=== PATIENT | male | born 1970 | race Caucasian/White ===

== ENCOUNTER 2024-11-02 16:29 | Inpatient (IN) | payer OTHER ==
[~2024-11-02] VITALS: Ht 172.7 cm; Wt 86.2 kg
[2024-11-02] MEDS: SODIUM CHLORIDE 0.9% (SEPSIS BOLUS) IV ONE (17:11)
[2024-11-02] MEDS: PIPERACILLIN/TAZO 3.375G/50ML 50 ML IV ONE (17:21)
[2024-11-02 17:32] LABS: MEAN CORPUSCULAR HEMOGLOBIN 28.1 pg (28.0-32.0); MEAN CORPUSCULAR HGB CONC 29.4 g/dL (31.0-37.0); MEAN CORPUSCULAR VOLUME 95.7 fL (80.0-94.0); MEAN PLATELET VOLUME 9.3 fl (7.4-10.4); PLATELET 385 x1000/uL (130-400); RED BLOOD CELL COUNT 2.33 mill/uL (4.7-6.1); RED CELL DISTRIBUTION WIDTH 17.9 % (11.6-14.6); WHITE BLOOD COUNT 17.6 x1000/uL (4.5-11.0)
[2024-11-02 17:34] LABS: DIFFERENTIAL COMMENT 1
[2024-11-02 17:35] LABS: HEMOGLOBIN. 6.6 g/dL (14.0-18.0)
[2024-11-02 17:36] LABS: HEMATOCRIT. 22.3 % (42.0-52.0)
[2024-11-02 17:37] LABS: CHLORIDE 126 mEq/L (98-107)
[2024-11-02 17:38] LABS: CALCIUM 8.3 mg/dL (8.7-10.4); CARBON DIOXIDE 22 mEq/L (21-32)
[2024-11-02 17:39] LABS: INR 1.1; PROTHROMBIN TIME 11.8 sec (9.6-11.0)
[2024-11-02 17:43] LABS: CREATININE 3.5 mg/dL (0.6-1.3); GLUCOSE 201 mg/dL (70-105)
[2024-11-02 17:44] LABS: LACTIC ACID 2.2 mmol/L (0.4-2.0); TROPONIN I HIGH SENSITIVITY 27 ng/L (3.0-53)
[2024-11-02 17:45] LABS: ALANINE AMINOTRANSFERASE 54 IU/L (10-49); ALBUMIN 3.2 g/dL (3.2-4.8); ASPARTATE AMINOTRANSFERASE 36 IU/L (<34); BILIRUBIN DIRECT 0.2 mg/dL (<=3.0); BILIRUBIN TOTAL 0.5 mg/dL (0.1-1.0); PROTEIN TOTAL 7.2 g/dL (6.0-8.3)
[2024-11-02 17:48] LABS: SODIUM 161 mEq/L (136-145); UREA NITROGEN BLOOD 142 mg/dL (9-23)
[2024-11-02] MEDS: VANCOMYCIN 1G PREMIX 200 ML IV ONE (18:18)
[2024-11-02 20:08] LABS: ANISOCYTOSIS 1+; NUCLEATED RED BLOOD CELLS 2 /100 WBC; PLATELET ESTIMATE NORMAL
[2024-11-02] MEDS ORDERED: CLONIDINE 0.1MG TABLET PO PRN (21:00)
[2024-11-02] MEDS ORDERED: ACETAMINOPHEN 325MG TABLET PO PRN (21:00)
[2024-11-02] MEDS ORDERED: MAGNESIUM/ALUMINUM HYDROXIDE/SIMETHICONE 30ML UDC PO PRN (21:00)
[2024-11-02] MEDS ORDERED: MORPHINE SULFATE 2 MG/ML INJ (NOT FOR IM USE) IV PRN (21:00)
[2024-11-02] MEDS ORDERED: NA PHOS,M-B/NA PHOS,DI-BA ENEMA 118ML PR PRN (21:00)
[2024-11-02] MEDS ORDERED: ONDANSETRON HCL 4MG/2ML INJ IV PRN (21:00)
[2024-11-02] MEDS ORDERED: ACETAMINOPHEN 650MG SUPP PR PRN ×2 (21:00)
[2024-11-02] MEDS ORDERED: IPRATROPIUM/ALBUTEROL 0.5-3(2.5)MG/3ML NEB HHN PRN (21:00)
[2024-11-02] MEDS ORDERED: HYDROCODONE/ACETAMINOPHEN 5/325MG TABLET PO PRN (21:00)
[2024-11-02] MEDS ORDERED: GUAIFENESIN 200MG/10ML SUGAR FREE UDC PO PRN (21:00)
[2024-11-02] MEDS ORDERED: NALOXONE HCL 0.4MG/ML VIAL IV PRN (21:30)
[2024-11-02] MEDS: DEXT 5%/0.45% NACL 1000ML 1,000 ML IV SCH (21:45)
[2024-11-02 22:02] LABS: TROPONIN I HIGH SENSITIVITY 20 ng/L (3.0-53)
[2024-11-02 22:10] LABS: SODIUM 162 mEq/L (136-145)
[2024-11-02 22:38] LABS: IRON 33 ug/dL (65-175)
[2024-11-02 22:49] LABS: VITAMIN B12 SERUM 717 pg/mL (211-911)
[2024-11-02 23:21] LABS: TOTAL IRON BINDING CAPACITY > 670 ug/dl (250-425)
[2024-11-02] MEDS: PANTOPRAZOLE SODIUM 40 MG/VIAL IV NR (23:29)
[2024-11-03 01:20] LABS: POTASSIUM 4.5 mEq/L (3.5-5.1)
[2024-11-03 01:21] LABS: CALCIUM 7.9 mg/dL (8.7-10.4)
[2024-11-03 01:26] LABS: CREATININE 2.9 mg/dL (0.6-1.3)
[2024-11-03] MEDS: NOREPINEPHRINE 8MG/250ML PMX 250 ML IV PRN (01:37)
[2024-11-03 01:53] LABS: CLARITY URINE CLEAR (CLEAR); COLOR URINE YELLOW (YELLOW); GLUCOSE URINE NEGATIVE (NEGATIVE); KETONES URINE NEGATIVE (NEGATIVE); LEUKOCYTE ESTERASE URINE 2+ (NEGATIVE); NITRITE URINE NEGATIVE (NEGATIVE); OCCULT BLOOD URINE NEGATIVE (NEGATIVE); PH URINE 5.5 (4.5-8.0); PROTEIN URINE TRACE (NEGATIVE); SPECIFIC GRAVITY URINE 1.015 (1.005-1.030)
[2024-11-03 03:05] LABS: BACTERIA URINE 2+; SQUAMOUS EPITHELIAL CELL URINE NONE SEEN /lpf (RARE/1+); WBC URINE 50-100 /hpf (0-2)
[2024-11-03] MEDS: PIPERACILLIN/TAZO 3.375G/50ML 50 ML IV SCH (03:30)
[2024-11-03 04:27] LABS: OSMOLALITY URINE 313 mOsm/kg (500-850)
[2024-11-03 04:28] LABS: SODIUM URINE RANDOM < 10 mEq/L
[2024-11-03 09:53] LABS: MEAN CORPUSCULAR HEMOGLOBIN 29.2 pg (28.0-32.0); MEAN CORPUSCULAR HGB CONC 31.8 g/dL (31.0-37.0); MEAN CORPUSCULAR VOLUME 91.7 fL (80.0-94.0); MEAN PLATELET VOLUME 9.6 fl (7.4-10.4); RED BLOOD CELL COUNT 2.83 mill/uL (4.7-6.1); RED CELL DISTRIBUTION WIDTH 16.9 % (11.6-14.6)
[2024-11-03 10:10] LABS: DIFFERENTIAL COMMENT 1; POTASSIUM 3.6 mEq/L (3.5-5.1)
[2024-11-03 10:11] LABS: HEMOGLOBIN. 8.3 g/dL (14.0-18.0)
[2024-11-03 10:38] LABS: BG BASE EXCESS -5.6 mmol/L (-2.0-3.0); BG CARBOXYHEMOGLOBIN 0.1 % (0.5-1.5); BG DEOXYHEMOGLOBIN 1.3 % (0.0-5.0); BG FRACTION INSPIRED OXYGEN 36; BG HCO3 ACT 16.8 mmol/L (21.0-28.0); BG METHEMOGLOBIN 0.1 % (0.5-1.5); BG OXYGEN SATURATION 98.7 % (94.0-98.0); BG OXYHEMOGLOBIN 98.5 % (94.0-98.0); BG PH 7.482 (7.350-7.450); BG PO2 114.4 mmHg (83.0-108.0); BG SAMPLE SITE RIGHT RADIAL; BG TOTAL HEMOGLOBIN 8.7 g/dL (13.5-17.5); BG VENT MODE NASAL CANNULA
[2024-11-03 11:18] LABS: CALCIUM 5.5 mg/dL (8.7-10.4)
[2024-11-03] MEDS: DEXTROSE 5% WATER 1,000 ML IV SCH (11:18)
[2024-11-03] MEDS: PANTOPRAZOLE SODIUM 40 MG/VIAL IV SCH (11:24)
[2024-11-03 13:55] LABS: NUCLEATED RED BLOOD CELLS 4 /100 WBC
[2024-11-03 13:56] LABS: ANISOCYTOSIS 1+; PLATELET ESTIMATE SLIGHTLY INCREASED
[2024-11-03 13:57] LABS: PLATELET 404 x1000/uL (130-400)
[2024-11-03] MEDS ORDERED: DEXTROSE 50% WATER 50ML SYRINGE IV PRN (16:00)
[2024-11-03] MEDS: VANCOMYCIN 1GM/200ML PMX (BAXTER) IV SCH (16:22)
[2024-11-03] MEDS ORDERED: SODIUM BICARBONATE 100MEQ in DEXTROSE 5% WATER 1000ML IV SCH (17:00)
[2024-11-03 17:06] LABS: POTASSIUM 4.8 mEq/L (3.5-5.1)
[2024-11-03 17:07] LABS: CALCIUM 7.4 mg/dL (8.7-10.4)
[2024-11-03 17:15] LABS: CREATININE 2.8 mg/dL (0.6-1.3)
[2024-11-03] MEDS: BLOOD SUGAR DIAGNOSTIC STRIP TEST SCH (17:38)
[2024-11-03] MEDS: INSULIN LISPRO 100 UNITS/ML SUBCUT SCH (17:42)
[2024-11-03] MEDS: SODIUM BICARBONATE 50 MEQ in DEXTROSE 5% WATER 950 ML IV NR (19:14)
[2024-11-03 19:30] LABS: HEMATOCRIT 27.9 % (42.0-52.0); HEMOGLOBIN 7.7 g/dL (14.0-18.0)
[2024-11-03 19:32] LABS: POTASSIUM 4.8 mEq/L (3.5-5.1)
[2024-11-03 19:33] LABS: CALCIUM 7.3 mg/dL (8.7-10.4)
[2024-11-03 19:38] LABS: CREATININE 2.7 mg/dL (0.6-1.3)
[2024-11-04] VITALS (57 sets, daily range): BP systolic 71–157; BP diastolic 60–116; PULSE 53–71; RESP 9–24; TEMP 35.7–37.5; O2SAT 97–100
[2024-11-04 00:51] LABS: POTASSIUM 4.1 mEq/L (3.5-5.1)
[2024-11-04 00:53] LABS: CALCIUM 7.5 mg/dL (8.7-10.4)
[2024-11-04 00:57] LABS: CREATININE 2.5 mg/dL (0.6-1.3)
[2024-11-04 01:09] LABS: HEMATOCRIT 22.3 % (42.0-52.0)
[2024-11-04 01:11] LABS: HEMOGLOBIN 6.9 g/dL (14.0-18.0)
[2024-11-04 09:53] LABS: BG BASE EXCESS -4.6 mmol/L (-2.0-3.0); BG CARBOXYHEMOGLOBIN 0.2 % (0.5-1.5); BG DEOXYHEMOGLOBIN 1.3 % (0.0-5.0); BG FRACTION INSPIRED OXYGEN 36; BG METHEMOGLOBIN 0.3 % (0.5-1.5); BG OXYGEN SATURATION 98.7 % (94.0-98.0); BG OXYHEMOGLOBIN 98.2 % (94.0-98.0); BG PCO2 28.9 mmHg (35.0-48.0); BG PH 7.435 (7.350-7.450); BG PO2 126.5 mmHg (83.0-108.0); BG SAMPLE SITE RIGHT RADIAL; BG TOTAL HEMOGLOBIN 8.2 g/dL (13.5-17.5); BG VENT MODE NASAL CANNULA
[2024-11-04] MEDS ORDERED: DEXTROSE 5% WATER 1,000 ML IV SCH (10:00)
[2024-11-04 13:43] LABS: CARBON DIOXIDE 20 mEq/L (21-32); CHLORIDE 131 mEq/L (98-107)
[2024-11-04 13:44] LABS: CALCIUM 7.4 mg/dL (8.7-10.4)
[2024-11-04 13:48] LABS: CREATININE 2.1 mg/dL (0.6-1.3); GLUCOSE 144 mg/dL (70-105)
[2024-11-04 13:49] LABS: UREA NITROGEN BLOOD 69 mg/dL (9-23)
[2024-11-04 13:51] LABS: PHOSPHORUS 4.1 mg/dL (2.5-4.9)
[2024-11-04 14:09] LABS: SODIUM 165 mEq/L (136-145)
[2024-11-04 14:17] LABS: HEMATOCRIT 26.6 % (42.0-52.0); HEMOGLOBIN 8.1 g/dL (14.0-18.0)
[2024-11-04 14:19] LABS: BASOPHILS % 0.3 % (0.0-2.0); EOSINOPHILS % 2.4 % (0.0-5.0); HEMATOCRIT. 25.4 % (42.0-52.0); HEMOGLOBIN. 7.8 g/dL (14.0-18.0); LYMPHOCYTES % 8.3 % (20.0-50.0); MEAN CORPUSCULAR HEMOGLOBIN 29.2 pg (28.0-32.0); MEAN CORPUSCULAR HGB CONC 30.6 g/dL (31.0-37.0); MEAN CORPUSCULAR VOLUME 95.4 fL (80.0-94.0); MEAN PLATELET VOLUME 9.6 fl (7.4-10.4); MONOCYTES % 5.2 % (2.0-8.0); NEUTROPHILS % 83.8 % (40.0-76.0); PLATELET 301 x1000/uL (130-400); RED BLOOD CELL COUNT 2.66 mill/uL (4.7-6.1); RED CELL DISTRIBUTION WIDTH 17.1 % (11.6-14.6)
[2024-11-04] MEDS: DEXTROSE 5% WATER 1,000 ML IV SCH (17:44)
[2024-11-04] MEDS ORDERED: ASPIRIN 81MG EC TABLET PO SCH (20:00)
[2024-11-04] MEDS ORDERED: CLOPIDOGREL 75MG TABLET PO SCH (20:00)
[2024-11-04] MEDS: ATORVASTATIN CALCIUM 40MG TABLET PO SCH (20:35)
[2024-11-04] MEDS: DOCUSATE SODIUM 100MG CAPSULE PO PRN (20:36)
[2024-11-04 21:07] LABS: HEMATOCRIT 29.6 % (42.0-52.0); HEMOGLOBIN 9.2 g/dL (14.0-18.0)
[2024-11-04 21:22] LABS: AMMONIA 20 uMol/L (<32)
[2024-11-05] VITALS (88 sets, daily range): BP systolic 74–139; BP diastolic 55–101; PULSE 47–84; RESP 8–25; TEMP 35.6–37.2; O2SAT 93–100
[2024-11-05] MEDS: DOPAMINE 400MG/250ML PREMIX 250 ML IV PRN (00:16)
[2024-11-05] MEDS: DIPHENHYDRAMINE 50MG/ML VIAL IV PRN (00:44)
[2024-11-05 05:21] LABS: CHLORIDE 131 mEq/L (98-107); POTASSIUM 4.3 mEq/L (3.5-5.1)
[2024-11-05 05:22] LABS: CALCIUM 7.5 mg/dL (8.7-10.4); CARBON DIOXIDE 21 mEq/L (21-32)
[2024-11-05 05:27] LABS: CREATININE 1.7 mg/dL (0.6-1.3); GLUCOSE 166 mg/dL (70-105)
[2024-11-05 05:28] LABS: LDL CHOLESTEROL 29 mg/dL (5-100); TRIGLYCERIDE 221 mg/dL (0-150); UREA NITROGEN BLOOD 56 mg/dL (9-23)
[2024-11-05 05:29] LABS: ALANINE AMINOTRANSFERASE 165 IU/L (10-49); ALBUMIN 2.5 g/dL (3.2-4.8); ASPARTATE AMINOTRANSFERASE 117 IU/L (<34); BILIRUBIN DIRECT 1.3 mg/dL (<=3.0); CHOLESTEROL 81 mg/dL (<200); CREATINE KINASE 352 IU/L (46-171); HDL CHOLESTEROL < 20 mg/dL (>55); LACTATE DEHYDROGENASE 620 IU/L (120-246); PROTEIN TOTAL 5.9 g/dL (6.0-8.3)
[2024-11-05 05:45] LABS: HEPATITIS B SURFACE ANTIGEN NEGATIVE (Negative)
[2024-11-05 05:56] LABS: HEMATOCRIT. 25.1 % (42.0-52.0); HEMOGLOBIN. 7.8 g/dL (14.0-18.0); MEAN CORPUSCULAR HEMOGLOBIN 29.3 pg (28.0-32.0); MEAN CORPUSCULAR HGB CONC 31.2 g/dL (31.0-37.0); MEAN PLATELET VOLUME 9.6 fl (7.4-10.4); PLATELET 269 x1000/uL (130-400); RED BLOOD CELL COUNT 2.67 mill/uL (4.7-6.1); RED CELL DISTRIBUTION WIDTH 16.6 % (11.6-14.6); WHITE BLOOD COUNT 11.7 x1000/uL (4.5-11.0)
[2024-11-05 06:06] LABS: HEPATITIS A AB IGM REACTIVE (Negative); HEPATITIS B CORE AB IGM NEGATIVE (Negative)
[2024-11-05 06:07] LABS: HEPATITIS C AB NON REACTIVE (Neg) (Negative); SODIUM 164 mEq/L (136-145)
[2024-11-05 07:18] LABS: DIFFERENTIAL COMMENT 1
[2024-11-05 12:37] LABS: HEMATOCRIT 28.1 % (42.0-52.0); HEMOGLOBIN 8.6 g/dL (14.0-18.0)
[2024-11-05] MEDS: VANCOMYCIN 1GM/200ML PMX (BAXTER) IV SCH (13:54)
[2024-11-05] MEDS: MIDODRINE HCL 5MG TABLET NG SCH (13:55)
[2024-11-05] MEDS: FERROUS SULFATE 325MG TABLET PO SCH (18:08)
[2024-11-05] MEDS: CEFAZOLIN 2GM/100ML 100 ML IV SCH (21:13)
[2024-11-05] MEDS ORDERED: CEFAZOLIN 2GM/100ML 100 ML IV SCH ×2 (22:00)
[2024-11-05 22:43] LABS: HEMATOCRIT 28.8 % (42.0-52.0); HEMOGLOBIN 8.8 g/dL (14.0-18.0)
[2024-11-06] VITALS (35 sets, daily range): BP systolic 99–161; BP diastolic 68–96; PULSE 54–86; RESP 10–32; TEMP 36–36.6; O2SAT 95–100
[2024-11-06 01:50] LABS: HEMATOCRIT 31.5 % (42.0-52.0); HEMOGLOBIN 9.8 g/dL (14.0-18.0)
[2024-11-06 05:42] LABS: BASOPHILS % 0.4 % (0.0-2.0); EOSINOPHILS % 4.1 % (0.0-5.0); HEMATOCRIT. 28.2 % (42.0-52.0); LYMPHOCYTES % 8.3 % (20.0-50.0); MEAN CORPUSCULAR HEMOGLOBIN 29.2 pg (28.0-32.0); MEAN CORPUSCULAR HGB CONC 31.9 g/dL (31.0-37.0); MEAN CORPUSCULAR VOLUME 91.5 fL (80.0-94.0); MEAN PLATELET VOLUME 9.2 fl (7.4-10.4); MONOCYTES % 3.9 % (2.0-8.0); NEUTROPHILS % 83.3 % (40.0-76.0); PLATELET 293 x1000/uL (130-400); RED BLOOD CELL COUNT 3.08 mill/uL (4.7-6.1); RED CELL DISTRIBUTION WIDTH 16.5 % (11.6-14.6); WHITE BLOOD COUNT 10.4 x1000/uL (4.5-11.0)
[2024-11-06 05:49] LABS: CHLORIDE 126 mEq/L (98-107); POTASSIUM 3.2 mEq/L (3.5-5.1)
[2024-11-06 05:52] LABS: CARBON DIOXIDE 20 mEq/L (21-32)
[2024-11-06 05:53] LABS: CALCIUM 7.7 mg/dL (8.7-10.4)
[2024-11-06 05:57] LABS: CREATININE 1.5 mg/dL (0.6-1.3); GLUCOSE 142 mg/dL (70-105)
[2024-11-06 05:58] LABS: UREA NITROGEN BLOOD 36 mg/dL (9-23)
[2024-11-06 05:59] LABS: ALANINE AMINOTRANSFERASE 117 IU/L (10-49); ALBUMIN 2.5 g/dL (3.2-4.8); ASPARTATE AMINOTRANSFERASE 58 IU/L (<34)
[2024-11-06 06:00] LABS: BILIRUBIN DIRECT 0.6 mg/dL (<=3.0); BILIRUBIN TOTAL 0.9 mg/dL (0.1-1.0); PHOSPHORUS 2.7 mg/dL (2.5-4.9); PROTEIN TOTAL 5.7 g/dL (6.0-8.3)
[2024-11-06] MEDS: CEFEPIME 2 GM/50 ML IV SCH (06:19)
[2024-11-06 06:57] LABS: SODIUM 159 mEq/L (136-145)
[2024-11-06] MEDS: POTASSIUM CHLORIDE 20MEQ/PACKET PO NR ×2 (11:14→18:00)
[2024-11-06] MEDS ORDERED: ATROPINE SULFATE 1MG/ML VIAL IV PRN (11:15)
[2024-11-06] MEDS: MIDODRINE HCL 5MG TABLET NG SCH (13:00)
[2024-11-06 17:57] LABS: ANISOCYTOSIS 1+; PLATELET ESTIMATE NORMAL
[2024-11-07] VITALS: BP 145/80; PULSE 70; RESP 16; TEMP 36.2; O2SAT 95
[2024-11-07 04:00] VITALS: BP 136/83; PULSE 69; RESP 17; TEMP 36.3; O2SAT 98
[2024-11-07 07:45] LABS: CALCIUM 7.6 mg/dL (8.7-10.4); CARBON DIOXIDE 21 mEq/L (21-32); CHLORIDE 126 mEq/L (98-107); POTASSIUM 3.7 mEq/L (3.5-5.1); SODIUM 155 mEq/L (136-145)
[2024-11-07 07:48] LABS: UREA NITROGEN BLOOD 29 mg/dL (9-23)
[2024-11-07 07:50] LABS: CREATININE 1.5 mg/dL (0.6-1.3); GLUCOSE 160 mg/dL (70-105)
[2024-11-07 07:52] LABS: ALANINE AMINOTRANSFERASE 84 IU/L (10-49); ALBUMIN 2.5 g/dL (3.2-4.8); ASPARTATE AMINOTRANSFERASE 56 IU/L (<34); BILIRUBIN DIRECT 0.4 mg/dL (<=3.0)
[2024-11-07 07:53] LABS: BILIRUBIN TOTAL 0.7 mg/dL (0.1-1.0); PHOSPHORUS 2.6 mg/dL (2.5-4.9)
[2024-11-07 08:00] VITALS: BP 157/92; PULSE 72; RESP 19; TEMP 36.5; O2SAT 97
[2024-11-07 08:14] LABS: BASOPHILS % 0.4 % (0.0-2.0); HEMATOCRIT. 29.5 % (42.0-52.0); HEMOGLOBIN. 9.6 g/dL (14.0-18.0); LYMPHOCYTES % 11.1 % (20.0-50.0); MEAN CORPUSCULAR HEMOGLOBIN 29.5 pg (28.0-32.0); MEAN CORPUSCULAR HGB CONC 32.5 g/dL (31.0-37.0); MEAN CORPUSCULAR VOLUME 90.8 fL (80.0-94.0); MEAN PLATELET VOLUME 9.2 fl (7.4-10.4); MONOCYTES % 5.1 % (2.0-8.0); NEUTROPHILS % 79.4 % (40.0-76.0); PLATELET 298 x1000/uL (130-400); RED BLOOD CELL COUNT 3.25 mill/uL (4.7-6.1); RED CELL DISTRIBUTION WIDTH 16.1 % (11.6-14.6); WHITE BLOOD COUNT 9.4 x1000/uL (4.5-11.0)
[2024-11-07 12:00] VITALS: BP 143/94; PULSE 74; RESP 19; TEMP 36.2; O2SAT 97
[2024-11-07] MEDS: POTASSIUM CHLORIDE 20MEQ/PACKET PO NR (13:38)
[2024-11-07 16:00] VITALS: BP 131/72; PULSE 75; RESP 19; TEMP 36.5; O2SAT 97
[2024-11-07] MEDS: DOCUSATE SODIUM SUGAR FREE 100MG/10ML UDC PEG PRN (18:14)
[2024-11-07 20:00] VITALS: BP 158/98; PULSE 76; RESP 18; TEMP 36.5; O2SAT 99
[2024-11-07] MEDS ORDERED: MIDODRINE HCL 5MG TABLET NG SCH (21:00)
[2024-11-07] MEDS: ATORVASTATIN CALCIUM 40MG TABLET PEG SCH (21:11)
[2024-11-08] VITALS: BP 138/86; PULSE 78; RESP 19; TEMP 36.4; O2SAT 98
[2024-11-08 04:00] VITALS: BP 146/86; PULSE 80; RESP 20; TEMP 36.5; O2SAT 98
[2024-11-08 06:52] LABS: CHLORIDE 122 mEq/L (98-107); POTASSIUM 3.7 mEq/L (3.5-5.1); SODIUM 151 mEq/L (136-145)
[2024-11-08 06:54] LABS: CALCIUM 7.6 mg/dL (8.7-10.4); CARBON DIOXIDE 20 mEq/L (21-32)
[2024-11-08 06:59] LABS: CREATININE 1.3 mg/dL (0.6-1.3); GLUCOSE 148 mg/dL (70-105); UREA NITROGEN BLOOD 20 mg/dL (9-23)
[2024-11-08 07:00] LABS: ALANINE AMINOTRANSFERASE 68 IU/L (10-49); ASPARTATE AMINOTRANSFERASE 45 IU/L (<34)
[2024-11-08 07:01] LABS: ALBUMIN 2.5 g/dL (3.2-4.8); BILIRUBIN DIRECT 0.3 mg/dL (<=3.0); BILIRUBIN TOTAL 0.7 mg/dL (0.1-1.0)
[2024-11-08 07:59] LABS: HEMATOCRIT. 30.2 % (42.0-52.0); HEMOGLOBIN. 9.7 g/dL (14.0-18.0); MEAN CORPUSCULAR HEMOGLOBIN 29.8 pg (28.0-32.0); MEAN PLATELET VOLUME 8.9 fl (7.4-10.4); PLATELET 272 x1000/uL (130-400); RED BLOOD CELL COUNT 3.24 mill/uL (4.7-6.1); RED CELL DISTRIBUTION WIDTH 16.7 % (11.6-14.6); WHITE BLOOD COUNT 9.4 x1000/uL (4.5-11.0)
[2024-11-08 08:00] VITALS: BP 134/99; PULSE 84; RESP 18; TEMP 37.8; O2SAT 100
[2024-11-08 09:04] LABS: DIFFERENTIAL COMMENT 1
[2024-11-08 12:00] VITALS: BP 152/96; PULSE 80; RESP 18; TEMP 35.9; O2SAT 99
[2024-11-08 14:06] LABS: ANISOCYTOSIS 1+; PLATELET ESTIMATE NORMAL
[2024-11-08 16:00] VITALS: BP 166/103; PULSE 84; RESP 18; TEMP 36.6; O2SAT 100
[2024-11-08] MEDS: DEXTROSE 5% WATER 1,000 ML IV SCH (16:50)
[2024-11-08 20:00] VITALS: BP 160/103; PULSE 84; RESP 19; TEMP 36.7; O2SAT 98
[2024-11-08] MEDS: ACETAMINOPHEN 325MG TABLET PO PRN (22:18)
[2024-11-08] MEDS: HYDRALAZINE 20MG/ML VIAL IV PRN (22:19)
[2024-11-09] VITALS: BP 140/90; PULSE 100; RESP 18; TEMP 36.1; O2SAT 99
[2024-11-09 04:00] VITALS: BP 112/75; PULSE 98; RESP 18; TEMP 36.6; O2SAT 98
[2024-11-09 07:10] LABS: CHLORIDE 116 mEq/L (98-107); POTASSIUM 3.6 mEq/L (3.5-5.1); SODIUM 143 mEq/L (136-145)
[2024-11-09 07:11] LABS: CALCIUM 7.8 mg/dL (8.7-10.4); CARBON DIOXIDE 19 mEq/L (21-32); HEMATOCRIT. 30.3 % (42.0-52.0); HEMOGLOBIN. 9.8 g/dL (14.0-18.0); MEAN CORPUSCULAR HEMOGLOBIN 29.9 pg (28.0-32.0); MEAN CORPUSCULAR HGB CONC 32.4 g/dL (31.0-37.0); MEAN CORPUSCULAR VOLUME 92.3 fL (80.0-94.0); MEAN PLATELET VOLUME 8.9 fl (7.4-10.4); PLATELET 279 x1000/uL (130-400); RED BLOOD CELL COUNT 3.29 mill/uL (4.7-6.1); RED CELL DISTRIBUTION WIDTH 16.3 % (11.6-14.6)
[2024-11-09 07:16] LABS: CREATININE 1.3 mg/dL (0.6-1.3); GLUCOSE 139 mg/dL (70-105); UREA NITROGEN BLOOD 18 mg/dL (9-23)
[2024-11-09 07:17] LABS: ALANINE AMINOTRANSFERASE 76 IU/L (10-49)
[2024-11-09 07:18] LABS: ALBUMIN 2.5 g/dL (3.2-4.8); ASPARTATE AMINOTRANSFERASE 60 IU/L (<34); BILIRUBIN DIRECT 0.3 mg/dL (<=3.0)
[2024-11-09 07:19] LABS: BILIRUBIN TOTAL 0.6 mg/dL (0.1-1.0); PREALBUMIN 15.5 mg/dl (10.0-40.0)
[2024-11-09 07:58] LABS: DIFFERENTIAL COMMENT 1
[2024-11-09 08:00] VITALS: BP 121/78; PULSE 97; RESP 16; TEMP 36.5; O2SAT 98
[2024-11-09] MEDS: POTASSIUM-SODIUM PHOSPHATE POWDER PACKET PO SCH (11:54)
[2024-11-09 12:00] VITALS: BP 148/92; PULSE 97; RESP 18; TEMP 36.5; O2SAT 99
[2024-11-09 16:00] VITALS: BP 148/85; PULSE 94; RESP 16; TEMP 36.6; O2SAT 100
[2024-11-09 19:50] LABS: ANISOCYTOSIS 1+; PLATELET ESTIMATE NORMAL
[2024-11-09 20:00] VITALS: BP 150/94; PULSE 89; RESP 19; TEMP 36.6; O2SAT 98
[2024-11-10 04:00] VITALS: BP 107/46; PULSE 82; RESP 19; TEMP 36.1; O2SAT 97
[2024-11-10] MEDS: PANTOPRAZOLE 40MG DR TABLET PO SCH (06:45)
[2024-11-10 06:50] LABS: HEMATOCRIT. 29.2 % (42.0-52.0); HEMOGLOBIN. 9.3 g/dL (14.0-18.0); MEAN CORPUSCULAR HGB CONC 31.8 g/dL (31.0-37.0); MEAN CORPUSCULAR VOLUME 91.2 fL (80.0-94.0); MEAN PLATELET VOLUME 8.8 fl (7.4-10.4); PLATELET 277 x1000/uL (130-400); RED CELL DISTRIBUTION WIDTH 16.6 % (11.6-14.6); WHITE BLOOD COUNT 11.4 x1000/uL (4.5-11.0)
[2024-11-10 07:02] LABS: CHLORIDE 113 mEq/L (98-107); POTASSIUM 3.7 mEq/L (3.5-5.1); SODIUM 142 mEq/L (136-145)
[2024-11-10 07:03] LABS: CARBON DIOXIDE 20 mEq/L (21-32)
[2024-11-10 07:08] LABS: CREATININE 1.3 mg/dL (0.6-1.3); GLUCOSE 123 mg/dL (70-105); UREA NITROGEN BLOOD 18 mg/dL (9-23)
[2024-11-10 07:10] LABS: PHOSPHORUS 2.7 mg/dL (2.5-4.9)
[2024-11-10 07:40] LABS: DIFFERENTIAL COMMENT 1
[2024-11-10 08:00] VITALS: BP 143/86; PULSE 98; RESP 18; TEMP 36.3; O2SAT 100
[2024-11-10 08:34] LABS: TROPONIN I HIGH SENSITIVITY 28 ng/L (3.0-53)
[2024-11-10 12:00] VITALS: BP 131/99; PULSE 109; RESP 16; TEMP 36.6; O2SAT 99
[2024-11-10 16:00] VITALS: BP 132/89; PULSE 110; RESP 17; TEMP 36.7; O2SAT 96
[2024-11-10 16:56] LABS: PLATELET ESTIMATE NORMAL
[2024-11-10 20:00] VITALS: BP 131/100; PULSE 90; RESP 19; TEMP 36.6; O2SAT 100
[2024-11-11] VITALS: BP 128/88; PULSE 86; RESP 18; TEMP 35.6; O2SAT 97
[2024-11-11 04:00] VITALS: BP 105/58; PULSE 95; RESP 18; TEMP 37; O2SAT 100
[2024-11-11 08:00] VITALS: BP 137/88; PULSE 95; RESP 18; TEMP 36.4; O2SAT 100
[2024-11-11 12:00] VITALS: BP 132/89; PULSE 82; RESP 19; TEMP 37.2; O2SAT 95
[2024-11-11 13:11] LABS: HEMOGLOBIN. 9.9 g/dL (14.0-18.0); MEAN CORPUSCULAR HEMOGLOBIN 29.5 pg (28.0-32.0); MEAN CORPUSCULAR VOLUME 92.2 fL (80.0-94.0); MEAN PLATELET VOLUME 8.5 fl (7.4-10.4); PLATELET 268 x1000/uL (130-400); RED BLOOD CELL COUNT 3.36 mill/uL (4.7-6.1); RED CELL DISTRIBUTION WIDTH 17.3 % (11.6-14.6)
[2024-11-11 13:18] LABS: CALCIUM 8.5 mg/dL (8.7-10.4); CARBON DIOXIDE 21 mEq/L (21-32); CHLORIDE 113 mEq/L (98-107); POTASSIUM 4.1 mEq/L (3.5-5.1); SODIUM 142 mEq/L (136-145)
[2024-11-11 13:22] LABS: DIFFERENTIAL COMMENT 1
[2024-11-11 13:23] LABS: CREATININE 1.2 mg/dL (0.6-1.3)
[2024-11-11 13:24] LABS: GLUCOSE 130 mg/dL (70-105); UREA NITROGEN BLOOD 17 mg/dL (9-23)
[2024-11-11 14:42] LABS: ANISOCYTOSIS 1+; PLATELET ESTIMATE NORMAL
[2024-11-11 16:00] VITALS: BP 158/100; PULSE 95; RESP 16; TEMP 36.6; O2SAT 99
[2024-11-11 20:00] VITALS: BP 143/93; PULSE 95; RESP 20; TEMP 36.7; O2SAT 100
[2024-11-12] VITALS: BP 126/78; PULSE 94; RESP 20; TEMP 36.7; O2SAT 100
[2024-11-12 04:00] VITALS: BP_SYST 143; PULSE 96; RESP 19; TEMP 37.1; O2SAT 96
[2024-11-12 07:03] LABS: HEMATOCRIT. 29.2 % (42.0-52.0); HEMOGLOBIN. 9.5 g/dL (14.0-18.0); MEAN CORPUSCULAR HEMOGLOBIN 29.9 pg (28.0-32.0); MEAN CORPUSCULAR HGB CONC 32.7 g/dL (31.0-37.0); MEAN CORPUSCULAR VOLUME 91.6 fL (80.0-94.0); MEAN PLATELET VOLUME 8.6 fl (7.4-10.4); PLATELET 278 x1000/uL (130-400); RED BLOOD CELL COUNT 3.19 mill/uL (4.7-6.1); RED CELL DISTRIBUTION WIDTH 18.1 % (11.6-14.6); WHITE BLOOD COUNT 10.8 x1000/uL (4.5-11.0)
[2024-11-12 07:07] LABS: DIFFERENTIAL COMMENT 1
[2024-11-12 07:10] LABS: CARBON DIOXIDE 21 mEq/L (21-32); CHLORIDE 111 mEq/L (98-107); SODIUM 141 mEq/L (136-145)
[2024-11-12 07:12] LABS: CALCIUM 8.5 mg/dL (8.7-10.4)
[2024-11-12 07:16] LABS: CREATININE 1.1 mg/dL (0.6-1.3)
[2024-11-12 07:17] LABS: GLUCOSE 132 mg/dL (70-105); UREA NITROGEN BLOOD 18 mg/dL (9-23)
[2024-11-12 08:19] VITALS: BP 119/82; PULSE 94; RESP 18; TEMP 36.6; O2SAT 98
[2024-11-12 12:37] VITALS: BP 139/79; PULSE 98; RESP 18; TEMP 36.5; O2SAT 100
[2024-11-12 16:43] VITALS: BP 136/89; PULSE 100; RESP 18; TEMP 36.6; O2SAT 100
[2024-11-12 20:00] VITALS: BP 132/74; PULSE 105; RESP 19; TEMP 36.7; O2SAT 100
[2024-11-13] VITALS: BP 152/71; PULSE 73; RESP 20; TEMP 36.7; O2SAT 97
[2024-11-13 04:00] VITALS: BP 133/90; PULSE 112; RESP 20; TEMP 37.2; O2SAT 99
[2024-11-13 08:00] VITALS: BP 124/79; PULSE 103; RESP 19; TEMP 37.2; O2SAT 100
[2024-11-13 12:00] VITALS: BP 137/90; PULSE 107; RESP 18; TEMP 36.6; O2SAT 98
[2024-11-13 16:00] VITALS: BP 148/91; PULSE 107; RESP 18; TEMP 36.8; O2SAT 97
[2024-11-13 17:43] LABS: PLATELET ESTIMATE NORMAL
[2024-11-13 17:44] LABS: ANISOCYTOSIS 1+
[2024-11-13 20:00] VITALS: BP 146/90; PULSE 101; RESP 18; TEMP 36.7; O2SAT 97
[2024-11-14] VITALS: BP_SYST 146; BP_SYST 149; BP_DIAS 88; BP_DIAS 90; PULSE 104; RESP 18; RESP 20; TEMP 36.7; TEMP 36.8; O2SAT 98
[2024-11-14 04:00] VITALS: BP 142/88; PULSE 104; RESP 20; TEMP 36.5; O2SAT 97
[2024-11-14 08:00] VITALS: BP 165/97; PULSE 111; RESP 20; TEMP 38; O2SAT 97
[2024-11-14 12:00] VITALS: BP 110/65; PULSE 107; RESP 20; TEMP 37.2; O2SAT 97
[2024-11-14 16:00] VITALS: BP 140/94; PULSE 103; RESP 20; TEMP 37.6; O2SAT 96
[2024-11-14 20:00] VITALS: BP 129/52; PULSE 98; RESP 19; TEMP 36.4; O2SAT 97
[2024-11-15] VITALS: BP 133/75; PULSE 97; RESP 19; TEMP 36.4; O2SAT 97
[2024-11-15 04:00] VITALS: BP 145/80; PULSE 104; RESP 20; TEMP 37.7; O2SAT 99
[2024-11-15 08:00] VITALS: BP 144/94; PULSE 107; RESP 20; TEMP 36.9; O2SAT 99
[2024-11-15 12:00] VITALS: BP 157/88; PULSE 109; RESP 20; TEMP 37; O2SAT 95
[2024-11-15 16:00] VITALS: BP 141/78; PULSE 111; RESP 20; TEMP 36.6; O2SAT 96
[2024-11-15 20:00] VITALS: BP 131/64; PULSE 105; RESP 23; TEMP 36.5; O2SAT 96
[2024-11-16] VITALS: BP 164/96; PULSE 107; RESP 22; TEMP 36.3; O2SAT 96
[2024-11-16 04:00] VITALS: BP 156/101; PULSE 105; RESP 20; TEMP 36.6; O2SAT 99
[2024-11-16 08:00] VITALS: BP 162/98; PULSE 107; RESP 16; TEMP 36.1; O2SAT 97
[2024-11-16 12:00] VITALS: BP 133/86; PULSE 101; RESP 16; TEMP 35.6; O2SAT 98
[2024-11-16 16:00] VITALS: BP 156/84; PULSE 99; RESP 16; TEMP 36.2; O2SAT 96
[2024-11-16 20:00] VITALS: BP 146/96; PULSE 104; RESP 20; TEMP 36.7; O2SAT 96
[2024-11-16] MEDS: ACETAMINOPHEN 650MG/20.3ML UDC PEG PRN (20:50)
[2024-11-17] VITALS: BP 148/94; PULSE 96; RESP 20; TEMP 36.6; O2SAT 93
[2024-11-17 04:00] VITALS: BP 153/102; PULSE 97; RESP 20; TEMP 36.7; O2SAT 96
[2024-11-17 08:00] VITALS: BP 141/95; PULSE 110; RESP 16; TEMP 36.5; O2SAT 96
[2024-11-17 12:00] VITALS: BP 138/89; PULSE 96; RESP 18; TEMP 36.4; O2SAT 98
[2024-11-17 20:00] VITALS: BP 147/90; PULSE 93; RESP 21; TEMP 36.3; O2SAT 100
[2024-11-18] VITALS: BP 141/81; PULSE 92; RESP 16; TEMP 36.3; O2SAT 96
[2024-11-18 04:00] VITALS: BP 155/90; PULSE 93; RESP 22; TEMP 36.4; O2SAT 98
[2024-11-18 08:00] VITALS: BP 154/91; PULSE 97; RESP 18; TEMP 36.7; O2SAT 97
[2024-11-18 12:00] VITALS: BP 155/88; PULSE 91; RESP 18; TEMP 36.7; O2SAT 98
[2024-11-18 16:00] VITALS: BP 139/91; PULSE 96; RESP 18; TEMP 35.6; O2SAT 97
[2024-11-18 20:00] VITALS: BP 118/69; PULSE 92; RESP 18; TEMP 36.4; O2SAT 97
[2024-11-19] VITALS: BP 157/79; PULSE 94; RESP 18; TEMP 36; O2SAT 98
[2024-11-19 04:00] VITALS: BP 166/92; PULSE 92; RESP 22; TEMP 36.4; O2SAT 98
[2024-11-19 07:03] LABS: HEMATOCRIT 29.2 % (42.0-52.0); HEMOGLOBIN 9.6 g/dL (14.0-18.0); MEAN CORPUSCULAR HEMOGLOBIN 29.7 pg (28.0-32.0); MEAN CORPUSCULAR HGB CONC 32.8 g/dL (31.0-37.0); MEAN CORPUSCULAR VOLUME 90.4 fL (80.0-94.0); PLATELET 290 x1000/uL (130-400); RED BLOOD CELL COUNT 3.23 mill/uL (4.7-6.1); RED CELL DISTRIBUTION WIDTH 17.8 % (11.6-14.6); WHITE BLOOD COUNT 6.1 x1000/uL (4.5-11.0)
[2024-11-19 07:09] LABS: CALCIUM 8.7 mg/dL (8.7-10.4); CARBON DIOXIDE 25 mEq/L (21-32); CHLORIDE 109 mEq/L (98-107); POTASSIUM 4.1 mEq/L (3.5-5.1); SODIUM 143 mEq/L (136-145)
[2024-11-19 07:15] LABS: GLUCOSE 118 mg/dL (70-105); UREA NITROGEN BLOOD 18 mg/dL (9-23)
[2024-11-19 08:00] VITALS: BP 171/94; PULSE 90; RESP 17; TEMP 37.3; O2SAT 96
[2024-11-19 12:00] VITALS: BP 154/95; PULSE 92; RESP 17; TEMP 36.7; O2SAT 95
[2024-11-19 16:00] VITALS: BP_SYST 127; BP_SYST 154; BP_DIAS 101; BP_DIAS 95; PULSE 92; PULSE 97; RESP 16; RESP 17; TEMP 36.7; TEMP 36.9; O2SAT 95; O2SAT 99
[2024-11-19 20:00] VITALS: BP 131/93; PULSE 98; RESP 21; TEMP 36.6; O2SAT 99
[2024-11-20] VITALS: BP 156/103; PULSE 94; RESP 20; TEMP 36.3; O2SAT 100
[2024-11-20 08:00] VITALS: BP 150/97; PULSE 102; RESP 18; TEMP 36.6; O2SAT 98
[2024-11-20 12:00] VITALS: BP 150/96; PULSE 104; RESP 19; TEMP 37.1; O2SAT 100
[2024-11-20 16:00] VITALS: BP 148/93; PULSE 112; RESP 19; TEMP 37; O2SAT 98
[2024-11-20 20:00] VITALS: BP 122/61; PULSE 105; RESP 19; TEMP 36.6; O2SAT 100
[2024-11-21] VITALS: BP 150/87; PULSE 105; RESP 18; TEMP 36.6; O2SAT 100
[2024-11-21 04:00] VITALS: BP 146/95; PULSE 103; RESP 18; TEMP 36.4; O2SAT 99
[2024-11-21 07:49] VITALS: BP 142/95; PULSE 103; RESP 19; TEMP 36.5; O2SAT 98
[2024-11-21 12:00] VITALS: BP 142/121; PULSE 108; RESP 16; TEMP 37.1; O2SAT 98
[2024-11-21] MEDS: AMLODIPINE 5MG TABLET PO SCH (12:41)
[2024-11-21 16:00] VITALS: BP 143/99; PULSE 102; RESP 16; TEMP 36.9; O2SAT 93
[2024-11-21 23:04] VITALS: BP 153/90; PULSE 98; RESP 20; TEMP 36.5; O2SAT 96
[2024-11-22 04:00] VITALS: BP 142/94; PULSE 95; RESP 19; TEMP 36.5; O2SAT 97
[2024-11-22 06:16] LABS: HEMATOCRIT 30.9 % (42.0-52.0); HEMOGLOBIN 10.3 g/dL (14.0-18.0); MEAN CORPUSCULAR HEMOGLOBIN 29.8 pg (28.0-32.0); MEAN CORPUSCULAR HGB CONC 33.2 g/dL (31.0-37.0); MEAN CORPUSCULAR VOLUME 89.6 fL (80.0-94.0); PLATELET 329 x1000/uL (130-400); RED BLOOD CELL COUNT 3.45 mill/uL (4.7-6.1); RED CELL DISTRIBUTION WIDTH 17.5 % (11.6-14.6); WHITE BLOOD COUNT 6.1 x1000/uL (4.5-11.0)
[2024-11-22 06:20] LABS: CALCIUM 8.9 mg/dL (8.7-10.4); CARBON DIOXIDE 26 mEq/L (21-32); CHLORIDE 107 mEq/L (98-107); SODIUM 143 mEq/L (136-145)
[2024-11-22 06:26] LABS: GLUCOSE 123 mg/dL (70-105); UREA NITROGEN BLOOD 22 mg/dL (9-23)
[2024-11-22 06:28] LABS: PHOSPHORUS 3.9 mg/dL (2.5-4.9)
[2024-11-22 08:00] VITALS: BP 158/99; PULSE 104; RESP 18; TEMP 36.7; O2SAT 97
[2024-11-22 12:00] VITALS: BP 160/90; PULSE 100; RESP 16; TEMP 36.4; O2SAT 98
[2024-11-22 16:00] VITALS: BP 143/91; PULSE 96; RESP 16; TEMP 36.8; O2SAT 96
[2024-11-22 20:00] VITALS: BP 150/102; PULSE 102; RESP 19; TEMP 37; O2SAT 99
[2024-11-23] VITALS: BP 160/101; PULSE 101; RESP 18; TEMP 36.9; O2SAT 100
[2024-11-23 04:00] VITALS: BP 149/109; PULSE 98; RESP 19; TEMP 36.7; O2SAT 98
[2024-11-23 08:00] VITALS: BP 144/101; PULSE 112; RESP 16; TEMP 36.7; O2SAT 98
[2024-11-23 12:00] VITALS: BP 137/92; PULSE 107; RESP 18; TEMP 36.7; O2SAT 96
[2024-11-23 16:00] VITALS: BP 134/77; PULSE 93; RESP 16; TEMP 36.4; O2SAT 96
[2024-11-23 20:00] VITALS: BP 155/93; PULSE 107; RESP 18; TEMP 36.5; O2SAT 98
[2024-11-24] VITALS: BP 162/98; PULSE 107; RESP 19; TEMP 36.7; O2SAT 98
[2024-11-24 04:00] VITALS: BP 150/99; PULSE 106; RESP 19; TEMP 36.6; O2SAT 97
[2024-11-24 08:00] VITALS: BP 138/98; PULSE 100; RESP 17; TEMP 36.2; O2SAT 93
[2024-11-24 12:00] VITALS: BP 133/80; PULSE 98; RESP 16; TEMP 36.8; O2SAT 96
[2024-11-24 16:00] VITALS: BP 150/96; PULSE 94; RESP 17; TEMP 36.5; O2SAT 96
[2024-11-24 20:00] VITALS: BP 142/103; PULSE 108; RESP 21; TEMP 36; O2SAT 93
[2024-11-25] VITALS: BP 142/103; PULSE 99; RESP 20; TEMP 36.2; O2SAT 99
[2024-11-25 04:00] VITALS: BP 146/102; PULSE 99; RESP 19; TEMP 36.1; O2SAT 98
[2024-11-25 08:00] VITALS: BP 152/108; PULSE 118; RESP 18; TEMP 36.4; O2SAT 96
[2024-11-25 12:00] VITALS: BP 145/99; PULSE 113; RESP 17; TEMP 36.8; O2SAT 97
[2024-11-25 16:00] VITALS: BP 147/102; PULSE 114; RESP 17; TEMP 36.7; O2SAT 96
[2024-11-25 20:00] VITALS: BP 139/103; PULSE 107; RESP 22; TEMP 36.1; O2SAT 100
[2024-11-26] VITALS: BP 130/97; PULSE 106; RESP 20; TEMP 36.4; O2SAT 98
[2024-11-26 04:00] VITALS: BP 131/94; PULSE 110; RESP 20; TEMP 36.4; O2SAT 98
[2024-11-26 08:00] VITALS: BP 123/92; PULSE 101; RESP 19; TEMP 36.8; O2SAT 97
[2024-11-26 12:00] VITALS: BP 112/82; PULSE 98; RESP 18; TEMP 36.9; O2SAT 97
[2024-11-26 16:00] VITALS: BP 144/95; PULSE 114; RESP 19; TEMP 36.7; O2SAT 97
[2024-11-26 20:00] VITALS: BP 119/85; PULSE 102; RESP 18; TEMP 37.6; O2SAT 98
[2024-11-27] VITALS (7 sets, daily range): BP systolic 118–133; BP diastolic 81–90; PULSE 99–119; RESP 18–19; TEMP 36.7–37; O2SAT 96–98
[2024-11-27 07:28] LABS: HEMATOCRIT 31.7 % (42.0-52.0); HEMOGLOBIN 10.3 g/dL (14.0-18.0); MEAN CORPUSCULAR HEMOGLOBIN 29.2 pg (28.0-32.0); MEAN CORPUSCULAR HGB CONC 32.3 g/dL (31.0-37.0); MEAN CORPUSCULAR VOLUME 90.3 fL (80.0-94.0); PLATELET 441 x1000/uL (130-400); RED BLOOD CELL COUNT 3.51 mill/uL (4.7-6.1); RED CELL DISTRIBUTION WIDTH 17.3 % (11.6-14.6); WHITE BLOOD COUNT 12.8 x1000/uL (4.5-11.0)
[2024-11-27 07:31] LABS: CARBON DIOXIDE 24 mEq/L (21-32); CHLORIDE 107 mEq/L (98-107); POTASSIUM 3.9 mEq/L (3.5-5.1); SODIUM 143 mEq/L (136-145)
[2024-11-27 07:36] LABS: CREATININE 1.1 mg/dL (0.6-1.3); GLUCOSE 133 mg/dL (70-105); UREA NITROGEN BLOOD 26 mg/dL (9-23)
[2024-11-27] MEDS: ASPIRIN 81MG TABLET PEG SCH (18:39)
[2024-11-28] VITALS: BP 103/65; PULSE 98; RESP 19; TEMP 36.1; O2SAT 98
[2024-11-28 04:00] VITALS: BP 122/83; PULSE 92; RESP 20; TEMP 36.7; O2SAT 99
[2024-11-28 07:48] VITALS: BP 130/97; PULSE 104; RESP 18; TEMP 36.4; O2SAT 94
[2024-11-28] MEDS: CLOPIDOGREL 75MG TABLET PEG SCH (10:00)
[2024-11-28 12:00] VITALS: BP 129/97; PULSE 101; RESP 15; TEMP 36.4; O2SAT 99
[2024-11-28 16:00] VITALS: BP_SYST 129; BP_SYST 135; BP_DIAS 95; BP_DIAS 97; PULSE 101; RESP 15; TEMP 36.4; TEMP 36.5; O2SAT 99
[2024-11-28 19:27] LABS: BASOPHILS % 0.7 % (0.0-2.0); EOSINOPHILS % 1.3 % (0.0-5.0); HEMATOCRIT. 35.8 % (42.0-52.0); HEMOGLOBIN. 11.7 g/dL (14.0-18.0); LYMPHOCYTES % 10.1 % (20.0-50.0); MEAN CORPUSCULAR HEMOGLOBIN 29.4 pg (28.0-32.0); MEAN CORPUSCULAR HGB CONC 32.6 g/dL (31.0-37.0); MEAN CORPUSCULAR VOLUME 90.4 fL (80.0-94.0); MEAN PLATELET VOLUME 7.7 fl (7.4-10.4); MONOCYTES % 13.7 % (2.0-8.0); NEUTROPHILS % 74.2 % (40.0-76.0); PLATELET 431 x1000/uL (130-400); RED BLOOD CELL COUNT 3.97 mill/uL (4.7-6.1); RED CELL DISTRIBUTION WIDTH 17.3 % (11.6-14.6); WHITE BLOOD COUNT 10.8 x1000/uL (4.5-11.0)
[2024-11-28 19:38] LABS: CHLORIDE 108 mEq/L (98-107); POTASSIUM 3.7 mEq/L (3.5-5.1); SODIUM 143 mEq/L (136-145)
[2024-11-28 19:39] LABS: CARBON DIOXIDE 25 mEq/L (21-32)
[2024-11-28 19:40] LABS: CALCIUM 8.5 mg/dL (8.7-10.4)
[2024-11-28 19:44] LABS: GLUCOSE 129 mg/dL (70-105); UREA NITROGEN BLOOD 27 mg/dL (9-23)
[2024-11-28 20:00] VITALS: BP 130/90; PULSE 99; RESP 20; TEMP 36.4; O2SAT 100
[2024-11-29] VITALS: BP 121/88; PULSE 93; RESP 19; TEMP 36.4; O2SAT 98
[2024-11-29 04:00] VITALS: BP 92/53; PULSE 94; RESP 19; TEMP 36.5; O2SAT 94
[2024-11-29 08:00] VITALS: BP 122/86; PULSE 97; RESP 17; TEMP 36.8; O2SAT 99
[2024-11-29 12:00] VITALS: BP 122/91; PULSE 93; RESP 18; TEMP 36.7; O2SAT 96
[2024-11-29 16:00] VITALS: BP 130/91; PULSE 98; RESP 17; TEMP 36.6; O2SAT 100
[2024-11-29 20:00] VITALS: BP 127/92; PULSE 98; RESP 19; TEMP 37; O2SAT 100
[2024-11-30] VITALS: BP 162/93; PULSE 95; RESP 18; TEMP 36.6; O2SAT 100
[2024-11-30 04:00] VITALS: BP 122/97; PULSE 97; RESP 18; TEMP 36.6; O2SAT 97
[2024-11-30 08:00] VITALS: BP 141/77; PULSE 102; RESP 17; TEMP 36.7; O2SAT 96
[2024-11-30 12:00] VITALS: BP 119/74; PULSE 118; RESP 18; TEMP 36.4; O2SAT 96
[2024-11-30 16:00] VITALS: BP 132/92; PULSE 104; RESP 18; TEMP 36.6; O2SAT 97
[2024-11-30 20:00] VITALS: BP 142/72; PULSE 79; RESP 17; TEMP 36.6; O2SAT 99
[2024-11-30] MEDS: LACTULOSE 20G/30ML UDC PO PRN (22:06)
[2024-12-01] VITALS: BP 121/91; PULSE 100; RESP 18; TEMP 36.6; O2SAT 98
[2024-12-01 04:00] VITALS: BP 124/83; PULSE 109; PULSE 99; RESP 18; TEMP 36.5; O2SAT 99
[2024-12-01 08:00] VITALS: BP 137/100; PULSE 109; RESP 17; TEMP 36.9; O2SAT 99
[2024-12-01] MEDS: POLYETHYLENE GLYCOL 3350 (17GM) 1 DOSE PACK PO SCH (10:08)
[2024-12-01 12:00] VITALS: BP 134/100; PULSE 109; RESP 16; TEMP 36.6; O2SAT 96
[2024-12-01 16:00] VITALS: BP 138/100; PULSE 112; RESP 17; TEMP 36.8; O2SAT 96
[2024-12-01 20:00] VITALS: BP 135/102; PULSE 104; RESP 20; TEMP 36.1; O2SAT 96
[2024-12-02] VITALS (8 sets, daily range): BP systolic 108–166; BP diastolic 84–113; PULSE 90–140; RESP 19–20; TEMP 36–36.6; O2SAT 96–99
[2024-12-02] MEDS: DIGOXIN 500MCG/2ML AMP IV NR ×2 (05:56→06:15)
[2024-12-02] MEDS: SODIUM CHLORIDE 0.9% 500 ML IV NR (06:20)
[2024-12-02] MEDS: DILTIAZEM HCL 60MG TABLET PO SCH (14:11)
[2024-12-02] MEDS ORDERED: HYDRALAZINE 10 MG in SODIUM CHLORIDE 0.9% 49.5 ML IV PRN (19:30)
[2024-12-03] VITALS: BP 123/86; PULSE 87; RESP 19; TEMP 36.2; O2SAT 97
[2024-12-03 04:00] VITALS: BP 135/86; PULSE 89; RESP 19; TEMP 36.2; O2SAT 97
[2024-12-03] MEDS: LANSOPRAZOLE 30MG DR CAPSULE GT SCH (06:39)
[2024-12-03 08:00] VITALS: BP 118/81; PULSE 81; RESP 18; TEMP 36.2; O2SAT 99
[2024-12-03] MEDS: FERROUS SULFATE 300MG/5ML UDC PEG SCH (09:07)
[2024-12-03 12:00] VITALS: BP 130/89; PULSE 86; RESP 18; TEMP 36.3; O2SAT 100
[2024-12-03 16:00] VITALS: BP 122/81; PULSE 79; RESP 18; TEMP 36.3; O2SAT 99
[2024-12-03 20:00] VITALS: BP 136/93; PULSE 83; RESP 17; TEMP 36.7; O2SAT 98
[2024-12-04] VITALS: BP 137/80; PULSE 80; RESP 18; TEMP 36.4; O2SAT 98
[2024-12-04 04:00] VITALS: BP 136/93; PULSE 85; RESP 17; TEMP 36.4; O2SAT 99
[2024-12-04 08:00] VITALS: BP 139/91; PULSE 86; RESP 18; TEMP 36.9; O2SAT 97
[2024-12-04 12:00] VITALS: BP 140/96; PULSE 94; RESP 18; TEMP 36.8; O2SAT 100
[2024-12-04 16:00] VITALS: BP 141/96; PULSE 95; RESP 18; TEMP 36.6; O2SAT 97
[2024-12-04 20:00] VITALS: BP 135/84; PULSE 90; RESP 19; TEMP 36.9; O2SAT 100
[2024-12-04] MEDS: DIPHENHYDRAMINE 25MG CAPSULE PO NR (22:04)
[2024-12-05] VITALS: BP 120/71; PULSE 87; RESP 19; TEMP 36.4; O2SAT 100
[2024-12-05 04:00] VITALS: BP 109/75; PULSE 81; RESP 19; TEMP 36.3; O2SAT 100
[2024-12-05 08:00] VITALS: BP 143/89; PULSE 89; RESP 19; TEMP 37.2; O2SAT 96
[2024-12-05 11:46] VITALS: BP 140/97; PULSE 86; RESP 19; TEMP 36.6; O2SAT 97
[2024-12-05 15:36] VITALS: BP 139/90; PULSE 84; RESP 18; TEMP 36.7; O2SAT 98
[2024-12-05 20:00] VITALS: BP 137/85; PULSE 92; RESP 17; TEMP 36.9; O2SAT 98
[2024-12-06] VITALS: BP 140/98; PULSE 98; RESP 18; TEMP 36.8; O2SAT 99
[2024-12-06 04:00] VITALS: BP 126/85; PULSE 95; RESP 17; TEMP 36.6; O2SAT 98
[2024-12-06 08:00] VITALS: BP 135/88; PULSE 88; RESP 20; TEMP 36.7; O2SAT 96
[2024-12-06 12:00] VITALS: BP 143/95; PULSE 90; RESP 19; TEMP 36.1; O2SAT 95
[2024-12-06 16:00] VITALS: BP 147/99; PULSE 91; RESP 20; TEMP 35.6; O2SAT 96
[2024-12-06 20:00] VITALS: BP 131/87; PULSE 100; RESP 17; TEMP 36.5; O2SAT 97
[2024-12-07] VITALS: BP 127/82; PULSE 94; RESP 17; TEMP 37.1; O2SAT 98
[2024-12-07 04:00] VITALS: BP 139/99; PULSE 102; RESP 18; TEMP 37.1; O2SAT 98
[2024-12-07 08:00] VITALS: BP 134/92; PULSE 92; RESP 19; TEMP 36; O2SAT 98
[2024-12-07 12:00] VITALS: BP 133/86; PULSE 95; RESP 20; TEMP 37.2; O2SAT 99
[2024-12-07 16:00] VITALS: BP 136/84; PULSE 90; RESP 19; TEMP 37; O2SAT 98
[2024-12-07 20:00] VITALS: BP 162/90; PULSE 89; RESP 17; TEMP 36.2; O2SAT 99
[2024-12-08] VITALS: BP 135/68; PULSE 64; RESP 19; TEMP 36.6; O2SAT 97
[2024-12-08 04:00] VITALS: BP 165/88; PULSE 72; RESP 18; TEMP 36.3; O2SAT 100
[2024-12-08 08:00] VITALS: BP 122/84; RESP 20; TEMP 36.8; O2SAT 98
[2024-12-08 12:00] VITALS: BP 136/93; PULSE 94; RESP 18; TEMP 36.6; O2SAT 97
[2024-12-08 16:00] VITALS: BP 127/92; PULSE 87; RESP 18; TEMP 36.4; O2SAT 97
[2024-12-08 20:00] VITALS: BP 140/98; PULSE 89; RESP 18; TEMP 36.4; O2SAT 97
[2024-12-09] VITALS: BP 136/91; PULSE 89; RESP 18; TEMP 36.4; O2SAT 100
[2024-12-09 04:00] VITALS: BP 132/97; PULSE 94; RESP 18; TEMP 36.6; O2SAT 100
[2024-12-09 08:00] VITALS: BP 136/78; PULSE 78; RESP 18; TEMP 36.8; O2SAT 100
[2024-12-09 12:00] VITALS: BP 124/83; PULSE 93; RESP 17; TEMP 36.8; O2SAT 98
[2024-12-09 16:00] VITALS: BP 131/80; PULSE 88; RESP 17; TEMP 36.7; O2SAT 100
[2024-12-09 20:00] VITALS: BP 137/97; PULSE 94; RESP 19; TEMP 36.7; O2SAT 97
[2024-12-10] VITALS: BP 138/97; PULSE 89; RESP 19; TEMP 36.3; O2SAT 98
[2024-12-10 04:00] VITALS: BP 124/84; PULSE 90; RESP 19; TEMP 36.4; O2SAT 99
[2024-12-10 07:18] LABS: CARBON DIOXIDE 23 mEq/L (21-32); CHLORIDE 108 mEq/L (98-107); POTASSIUM 3.7 mEq/L (3.5-5.1); SODIUM 142 mEq/L (136-145)
[2024-12-10 07:24] LABS: CREATININE 0.9 mg/dL (0.6-1.3); GLUCOSE 158 mg/dL (70-105); UREA NITROGEN BLOOD 23 mg/dL (9-23)
[2024-12-10 08:00] VITALS: BP 150/45; PULSE 69; RESP 18; TEMP 36.4; O2SAT 100
[2024-12-10 08:20] LABS: BASOPHILS % 0.7 % (0.0-2.0); EOSINOPHILS % 4.5 % (0.0-5.0); HEMATOCRIT. 37.8 % (42.0-52.0); HEMOGLOBIN. 11.8 g/dL (14.0-18.0); LYMPHOCYTES % 14.1 % (20.0-50.0); MEAN CORPUSCULAR HEMOGLOBIN 27.9 pg (28.0-32.0); MEAN CORPUSCULAR HGB CONC 31.2 g/dL (31.0-37.0); MEAN CORPUSCULAR VOLUME 89.5 fL (80.0-94.0); MEAN PLATELET VOLUME 8.2 fl (7.4-10.4); MONOCYTES % 6.7 % (2.0-8.0); PLATELET 487 x1000/uL (130-400); RED BLOOD CELL COUNT 4.22 mill/uL (4.7-6.1); RED CELL DISTRIBUTION WIDTH 17.6 % (11.6-14.6); WHITE BLOOD COUNT 9.3 x1000/uL (4.5-11.0)
[2024-12-10 12:00] VITALS: BP 120/79; PULSE 91; RESP 18; TEMP 37; O2SAT 100
[2024-12-10 16:00] VITALS: BP 122/89; PULSE 91; RESP 19; TEMP 36.5; O2SAT 100
[2024-12-10 20:00] VITALS: BP 128/84; PULSE 94; RESP 19; TEMP 38.2; O2SAT 96
[2024-12-11] VITALS: BP 132/94; PULSE 95; RESP 19; TEMP 36.3; O2SAT 95
[2024-12-11 04:00] VITALS: BP 144/85; PULSE 102; RESP 19; TEMP 36.2; O2SAT 95
[2024-12-11 08:00] VITALS: BP 122/89; PULSE 85; RESP 18; TEMP 35.9; O2SAT 95
[2024-12-11 12:00] VITALS: BP 131/86; PULSE 89; RESP 16; TEMP 36.6; O2SAT 95
[2024-12-11 16:00] VITALS: BP 126/95; PULSE 86; RESP 17; TEMP 36.4; O2SAT 97
[2024-12-11 20:00] VITALS: BP 146/100; PULSE 109; RESP 20; TEMP 35.8; O2SAT 95
[2024-12-12] VITALS: BP 123/88; PULSE 91; RESP 20; TEMP 36.5; O2SAT 95
[2024-12-12 04:00] VITALS: BP 133/89; PULSE 94; RESP 20; TEMP 37; O2SAT 95
[2024-12-12 08:00] VITALS: BP 132/89; PULSE 88; RESP 18; TEMP 36; O2SAT 98
[2024-12-12 12:00] VITALS: BP 128/93; PULSE 86; RESP 18; TEMP 36.3; O2SAT 97
[2024-12-12 20:00] VITALS: BP 157/113; PULSE 89; RESP 17; TEMP 37.1; O2SAT 99
[2024-12-13] VITALS: BP_SYST 139; BP_SYST 147; BP_DIAS 89; BP_DIAS 95; PULSE 67; PULSE 97; RESP 17; TEMP 36.6; TEMP 37; O2SAT 95
[2024-12-13 04:00] VITALS: BP 147/95; PULSE 97; RESP 17; TEMP 36.6; O2SAT 95
[2024-12-13 08:00] VITALS: BP 149/99; PULSE 93; RESP 22; TEMP 35.6; O2SAT 95
[2024-12-13 12:00] VITALS: BP 140/93; PULSE 96; RESP 20; TEMP 36.1; O2SAT 97
[2024-12-13 16:00] VITALS: BP 139/90; PULSE 92; RESP 19; TEMP 36.7; O2SAT 98
[2024-12-13 20:00] VITALS: BP 149/109; PULSE 102; RESP 18; TEMP 36.3; O2SAT 95
[2024-12-14] VITALS: BP 146/105; PULSE 97; RESP 18; TEMP 36.2; O2SAT 97
[2024-12-14 04:00] VITALS: BP 136/99; PULSE 100; RESP 18; TEMP 36.2; O2SAT 99
[2024-12-14 08:00] VITALS: BP 129/91; PULSE 65; RESP 18; TEMP 36.4; O2SAT 97
[2024-12-14 16:00] VITALS: BP 133/96; PULSE 72; RESP 18; TEMP 36.8; O2SAT 98
[2024-12-14 20:00] VITALS: BP 96/66; PULSE 92; RESP 18; TEMP 36.6; O2SAT 100
[2024-12-15] VITALS: BP 121/49; PULSE 67; RESP 18; TEMP 36.2; O2SAT 98
[2024-12-15 04:00] VITALS: BP 111/74; PULSE 65; RESP 18; TEMP 36.4; O2SAT 95
[2024-12-15 08:00] VITALS: BP 150/94; PULSE 106; RESP 19; TEMP 36.7; O2SAT 98
[2024-12-15 12:00] VITALS: BP 140/95; PULSE 103; RESP 19; TEMP 36.7; O2SAT 99
[2024-12-15 16:00] VITALS: BP 160/98; PULSE 116; RESP 18; TEMP 36.6; O2SAT 99
[2024-12-15 20:00] VITALS: BP 132/87; PULSE 92; RESP 20; TEMP 36.4; O2SAT 97
[2024-12-16] VITALS: BP 107/69; PULSE 81; RESP 20; TEMP 36.2; O2SAT 95
[2024-12-16 04:00] VITALS: BP 120/90; PULSE 62; RESP 20; TEMP 36.4; O2SAT 97
[2024-12-16 08:00] VITALS: BP 115/69; PULSE 93; RESP 20; TEMP 36.4; O2SAT 96
[2024-12-16 12:00] VITALS: BP 134/90; PULSE 96; RESP 20; TEMP 36.4; O2SAT 96
[2024-12-16 14:58] VITALS: BP 142/68; PULSE 60; TEMP 98; O2SAT 98
[2024-12-16 16:00] VITALS: BP 135/95; PULSE 102; RESP 19; TEMP 36.2; O2SAT 97
== END 2024-12-16 18:35 | DRG 720 ==
LOC: ER 16:29 → EDBEDREQ 18:22 → MICUSO 18:50 → EDBEDREQTM 18:52 → EDBEDREQ 18:52 → EDBEDREQSVC 18:52 → ER 11-04 07:47 → 6WST 11-06 12:48 → 6EST 12-02 18:50
PROVIDERS: ADMIT Hospitalist; ATTEND Hospitalist
PROC: 30233N1 Transfusion of Nonautologous Red Blood Cells into Peripheral Vein, Percutaneous Approach (ICD-10-PCS; principal; 2024-11-04)
DX: A41.9 Sepsis, unspecified organism (principal); J96.01 Acute respiratory failure with hypoxia; N17.0 Acute kidney failure with tubular necrosis; R65.21 Severe sepsis with septic shock; J69.0 Pneumonitis due to inhalation of food and vomit; G92.8 Other toxic encephalopathy; E87.20 Acidosis, unspecified; E83.51 Hypocalcemia; I42.9 Cardiomyopathy, unspecified; E87.0 Hyperosmolality and hypernatremia; E87.8 Other disorders of electrolyte and fluid balance, not elsewhere classified; D53.9 Nutritional anemia, unspecified; N39.0 Urinary tract infection, site not specified; R74.01 Elevation of levels of liver transaminase levels; B15.9 Hepatitis A without hepatic coma; B96.1 Klebsiella pneumoniae [K. pneumoniae] as the cause of diseases classified elsewhere; B96.20 Unspecified Escherichia coli [E. coli] as the cause of diseases classified elsewhere; D50.9 Iron deficiency anemia, unspecified; D75.839 Thrombocytosis, unspecified; E87.1 Hypo-osmolality and hyponatremia; E87.6 Hypokalemia; E88.09 Other disorders of plasma-protein metabolism, not elsewhere classified; S30.1XXA Contusion of abdominal wall, initial encounter; K76.89 Other specified diseases of liver; L89.159 Pressure ulcer of sacral region, unspecified stage; L02.214 Cutaneous abscess of groin; S30.0XXA Contusion of lower back and pelvis, initial encounter; I11.0 Hypertensive heart disease with heart failure; I50.20 Unspecified systolic (congestive) heart failure; R73.9 Hyperglycemia, unspecified; S70.02XA Contusion of left hip, initial encounter; X58.XXXA Exposure to other specified factors, initial encounter; I63.81 Other cerebral infarction due to occlusion or stenosis of small artery; J18.9 Pneumonia, unspecified organism; S70.12XA Contusion of left thigh, initial encounter; Z74.01 Bed confinement status; I25.2 Old myocardial infarction; Z93.1 Gastrostomy status; Z79.82 Long term (current) use of aspirin; Z79.02 Long term (current) use of antithrombotics/antiplatelets; Z79.899 Other long term (current) drug therapy; Y93.89 Activity, other specified; Y92.89 Other specified places as the place of occurrence of the external cause; Y99.8 Other external cause status; I69.351 Hemiplegia and hemiparesis following cerebral infarction affecting right dominant side
CPT/HCPCS: 36415; 36600; 70551; 71045; 72195; 74176; 76700; 76770; 80048; 80061; 80076; 80202; 81003; 82140; 82248; 82330; 82375; 82550; 82607; 82728; 82746; 82805; 82962; 83036; 83540; 83550; 83605; 83615; 83735; 83930; 83935; 84100; 84134; 84145; 84295; 84300; 84484; 85014; 85018; 85025; 85027; 85044; 86705; 86709; 86850; 86900; 86920; 87077; 87186; 87340; 93005; 93306; 93970; 93971; 97112; 97162; 97164; 97166; 97530; 97535; 99291; A4606; A6261; J0360; J0690; J0692; J1160; J1200; J1265; J1815; J2470; J2543; J3370; J3490; J7030; J7070; P9016; Q0163